=== PATIENT | male | born 1940 | race Native Hawaiian/Other Pacific Islander ===

== ENCOUNTER 2016-12-12 18:52 | Inpatient (IN) | payer MEDICARE, BC ==
[~2016-12-12] VITALS: Ht 167.6 cm; Wt 73.9 kg
[2016-12-12] MEDS ORDERED: RASA1TAB PO (19:21)
[2016-12-12] MEDS ORDERED: LOSA1TAB39 PO (19:21)
[2016-12-12] MEDS ORDERED: AMLO2.5T PO (19:21)
[2016-12-12] MEDS ORDERED: CLON1TAB4 PO (19:21)
[2016-12-12] MEDS ORDERED: MELA3TAB PO (19:21)
[2016-12-12] MEDS ORDERED: TAMS0.4C34 PO (19:21)
[2016-12-12] MEDS ORDERED: ROSU5TAB PO (19:21)
[2016-12-12] MEDS ORDERED: LEVO25TA9 PO (19:21)
[2016-12-12] MEDS ORDERED: CARB-96 PO (19:21)
[2016-12-12] MEDS ORDERED: VENL75CA62 PO (19:21)
[2016-12-12] MEDS ORDERED: DIVA125C5 PO (19:21)
[2016-12-12] MEDS ORDERED: CARB-93 PO (19:21)
[2016-12-12] MEDS ORDERED: POTA10TA15 PO (19:21)
[2016-12-12] MEDS ORDERED: BISA-79 PO (19:21)
--- NOTE | 2016-12-12 19:24 | NUR ---
Patient BIB private ambulance for Medical Clearance and GPS admission. Patient arrives A/O x2, Mongolian speaking (some turkmen), calm and cooperative. To room 5A, RODDY performed MSE.
--- NOTE | 2016-12-12 19:24 | NUR ---
Patient arrives on 5150 hold for GD. Per hold, patient broke a window in a locked unit in an attempt to escape. Per hold, patient is aware and apologetic about the incident.
[2016-12-12 19:34] LABS: BASOPHILS # (AUTO) 0.1 K/uL (0.0-8.0); BASOPHILS % (AUTO) 1.7 % (0.0-2.0); EOSINOPHILS # (AUTO) 0.1 K/uL (0.0-0.7); EOSINOPHILS % (AUTO) 1.2 % (0.0-7.0); HEMATOCRIT 44.9 % (40-50); HEMOGLOBIN 15.5 G/DL (14.0-18.0); LYMPHOCYTES # (AUTO) 1.4 K/UL (0.8-4.8); LYMPHOCYTES % (AUTO) 16.7 % (20.5-51.5); MEAN CORPUSCULAR HEMOGLOBIN 31.5 UUG (27.0-31.0); MEAN CORPUSCULAR HGB CONC 35 g/dL (32.0-37.0); MEAN CORPUSCULAR VOLUME 91.3 FL (82.0-92.0); MONOCYTES # (AUTO) 0.5 K/UL (0.1-1.30); MONOCYTES % (AUTO) 5.8 % (0.0-11.0); NEUTROPHILS # (AUTO) 6.3 K/UL (1.8-8.9); NEUTROPHILS % (AUTO) 74.6 % (38.5-71.5); PLATELET COUNT (AUTO) 250 K/UL (150-450); RED BLOOD CELL COUNT(AUTO) 4.92 MIL/UL (4.7-6.1); WHITE BLOOD COUNT (AUTO) 8.4 K/UL (4.0-11.2)
[2016-12-12 19:44] LABS: CARBON DIOXIDE 28 mmol/L (21-32); CHLORIDE 104 mmol/L (98-107); CREATININE 1.1 mg/dL (0.6-1.3); GLUCOSE 143 mg/dL (74-106); POTASSIUM 2.9 mmol/L (3.5-5.1); UREA NITROGEN, BLOOD 14 mg/dL (7-18)
[2016-12-12 19:49] LABS: ALANINE AMINOTRANSFERASE 10 U/L (16-63); ALKALINE PHOSPHATASE 46 U/L (50-136); ASPARTATE AMINOTRANSFERASE 12 U/L (15-37); BILIRUBIN,DIRECT 0.1 mg/dL (0.0-0.2); BILIRUBIN,TOTAL 0.6 mg/dL (0.2-1.0); TOTAL PROTEIN, SERUM 6.4 g/dL (6.4-8.2)
[2016-12-12 20:11] LABS: ETHANOL < 3 MG/DL (0-0)
[2016-12-12] MEDS ORDERED: POT CHLORIDE/POT BICARB/CIT AC 25 MEQ TABLET.EFF PO ONE (20:30)
[2016-12-12 20:49] LABS: *BILIRUBIN,URIN NEGATIVE (NEGATIVE); *BLOOD, URINE 1+ (NEGATIVE); *CLARITY,URINE CLEAR (CLEAR); *COLOR,URINE YELLOW (YELLOW); *KETONES,URINE TRACE (NEGATIVE); *PROTEIN,URINE NEGATIVE (NEGATIVE); *UROBILINOGEN,URINE 0.2 E.U./dl (NORMAL); LEUKOCYTE ESTERASE ,URINE NEGATIVE (NEGATIVE); NITRITE, URINE NEGATIVE (NEGATIVE); PH,URINE 6.5 (5.0-8.0); UGLUCOSE NEGATIVE (NEGATIVE)
[2016-12-12 20:55] LABS: BACTERIA,URINE NONE SEEN /HPF (NONE SEEN); SQUAMOUS EPITHELIAL CELL,UR FEW /HPF (NONE SEEN); WBC,URINE 0-3 /HPF (0-3)
[2016-12-12] MEDS ORDERED: POTASSIUM BICARBONATE/CIT AC 25 MEQ TABLET.EFF ONE (20:57)
[2016-12-12 21:03] LABS: *AMPHETAMINE, URINE NEGATIVE (NEGATIVE); *BARBITURATE, URINE NEGATIVE (NEGATIVE); *CANNABINOID, URINE NEGATIVE (NEGATIVE); *COCCAINE, URINE NEGATIVE (NEGATIVE); *OPIATE, URINE NEGATIVE (NEGATIVE); *PHENCYCLIDINE SCREEN,URINE NEGATIVE (NEGATIVE)
--- NOTE | 2016-12-12 21:33 | NUR ---
Pt. admitted to GPS, under care of Dr. Patel Belongs List completed
[2016-12-12] MEDS ORDERED: ACETAMINOPHEN 325 MG TABLET PO PRN (22:00)
[2016-12-12] MEDS ORDERED: MAGNESIUM HYDROXIDE 30 ML LIQUID UDC PO PRN (22:00)
[2016-12-12] MEDS ORDERED: ZOLPIDEM 5 MG TABLET PO PRN (22:00)
[2016-12-12] MEDS ORDERED: MAG HYDROX/AL HYDROX/SIMETH 30 ML LIQUID UDC PO PRN (22:00)
[2016-12-12] MEDS ORDERED: ZOLPIDEM 5 MG TABLET ONE (22:45)
[2016-12-12] MEDS ORDERED: ACETAMINOPHEN 325 MG TABLET ONE (23:05)
[2016-12-13] MEDS ORDERED: LORAZEPAM 0.5 MG TABLET ONE (03:39)
--- NOTE | 2016-12-13 06:57 | NUR ---
PATIENT IS A 76 YR OLD [place] MALE ADMITTED TO [facility] ON A 5150 FOR GRAVE DISABILITY FOR BREAKING A WINDOW IN THE LOCKED BOARD AND CARE. PATIENT HAS ALSO BECOME AGGRESSIVE AND UNMANAGEABLE. PATIENT IS CONFUSED AND UNABLE TO FORMULATE PLAN FOR SELF. PATIENT HAS A HISTORY OF HYPERTENSION, PARKINSON'S, DEMENTIA, CONSTIPATION, BPH, ALZHEIMER'S, HYPOTHYROID. PATIENT ADMITTED UNDER THE CARE OF DR. RAE AND DR. HART. PATIENT PRESENTED ON THE UNIT CONFUSED UNABLE TO ANSWER ADMITTING INTERVIEW QUESTIONS PATIENT ANXIOUS, AND REQUIRED REDIRECTION. PRN FOR INSOMNIA ADMINISTERED WITH EFFECTIVE OUTCOME, PATIENT SLEPT A TOTAL OF FOUR HOURS AND FORTY-FIVE MINUTES. CONTINUE OBSERVATION FOR SAFETY.
[2016-12-13 08:00] VITALS: BP 137/80
--- NOTE | 2016-12-13 10:46 | NUR ---
Initial discharge instructions: Pt resides at [facility] [[address] [place], [place],[address];[phone]].Per pt's son,he would like the pt to return back to the facility.SW attempted to contact admissions office at the facility,but no answer at this time.In the case that the pt is not accepted back,son reported he will take the pt back home with his .THALIA will speak with pt,family,and MD regarding appropriate discharge plans.SW will form a safe and proper discharge.
[2016-12-13] MEDS: CARBIDOPA/LEVODOPA 25-100MG TABLET PO SCH ×2 (12:45→17:26)
[2016-12-13] MEDS: POTASSIUM CHLORIDE 10 MEQ CAPSULE.SA PO SCH (12:47)
[2016-12-13] MEDS: LEVOTHYROXINE SODIUM 25 MCG TABLET PO SCH (12:47)
[2016-12-13] MEDS: DIVALPROEX 250 MG TABLET.DR PO SCH ×2 (13:31→17:26)
[2016-12-13 15:00] VITALS: BP 156/92
[2016-12-13] MEDS: AZILECT 1 MG PO SCH (15:00)
[2016-12-13] MEDS: QUETIAPINE FUMARATE 25 MG TABLET PO SCH ×2 (17:26→21:05)
[2016-12-13] MEDS: CARBIDOPA/LEVODOPA CR 50-200MG TABLET.SA PO SCH (17:27)
[2016-12-13 21:22] VITALS: BP 107/65
[2016-12-14] MEDS: LEVOTHYROXINE SODIUM 25 MCG TABLET PO SCH (06:32)
[2016-12-14 07:30] VITALS: BP 162/94
[2016-12-14] MEDS: CARBIDOPA/LEVODOPA CR 50-200MG TABLET.SA PO SCH ×2 (08:23→17:00)
[2016-12-14] MEDS: DIVALPROEX 250 MG TABLET.DR PO SCH ×3 (08:23→17:00)
[2016-12-14] MEDS: POTASSIUM CHLORIDE 10 MEQ CAPSULE.SA PO SCH (08:23)
[2016-12-14] MEDS: CARBIDOPA/LEVODOPA 25-100MG TABLET PO SCH ×3 (08:23→17:00)
[2016-12-14] MEDS: QUETIAPINE FUMARATE 25 MG TABLET PO SCH ×3 (08:25→20:42)
[2016-12-14] MEDS: TAMSULOSIN HCL 0.4 MG CAP.SR.24H PO SCH (08:25)
[2016-12-14] MEDS: AZILECT 1 MG PO SCH (08:26)
[2016-12-14] MEDS ORDERED: Medication Not On Formulary EA (Potassium Chloride 1 TAB) PO SCH (09:00)
[2016-12-14] MEDS ORDERED: AMLODIPINE 2.5 MG TABLET PO SCH (09:00)
[2016-12-14] MEDS ORDERED: CLONIDINE HCL 0.1 MG TABLET PO PRN (10:00)
[2016-12-14] MEDS: LORAZEPAM 0.5 MG TABLET PO PRN (14:54)
[2016-12-14 16:00] VITALS: BP 115/69
[2016-12-14 20:32] VITALS: BP 133/61
[2016-12-14] MEDS ORDERED: LORAZEPAM 2 MG/1 ML VIAL IM ONE (22:00)
[2016-12-14] MEDS ORDERED: OLANZAPINE 10 MG VIAL IM ONE ×2 (22:00→22:09)
[2016-12-14] MEDS ORDERED: LORAZEPAM 2 MG/1 ML VIAL ONE (22:12)
--- NOTE | 2016-12-14 22:13 | NUR ---
AT APPROX 2130 PATIENT STARTED PACING THE MAIN HALLWAY. HE THEN, ATTEMPTED TO OPEN THE MAIN DOOR. VERBAL REDIRECTION WAS GIVEN, YET INEFFECTIVE. HE THEN STARTED YELLING AND SCREAMING AND CONTINUE TO TRY TO OPEN THE MAIN DOUBLE DOORS, VERBAL REDIRECTION WAS GIVEN AND PATIENT WAS ASKED TO SIT IN HIS CHETNA CHAIR. HOWEVER, HE CONTINUE BANGING THE TABLE OF HIS CHETNA CHAIR, YELLING AND SCREAMING. DR. RAE WAS NOTIFIED AT APPROX 2150 AND NEW ORDERS OBTAINED TO ADMINISTER ZYPREXA 5MG IM AND ATIVAN 1MG IM STAT ORDER ONE TIME ONLY FOR SEVERE AGITATION. AT APPROX 22OO, ZYPREXA 5MG IM WAS GIVEN IN THE LEFT DELTOID AND ATIVAN 1MG WAS GIVEN IN THE RIGHT DELTOID WITH PATIENT'S CONSENT. WE WILL CONTINUE TO MONITOR. Addendum: 12/14/16 at 2312 by JIM CLOUD RN ATIVAN 0.5MG PO PRN FOR ANXIETY WAS OFFERED AT APPROX 2140. HOWEVER PATIENT REFUSED TO TAKE MEDICATION. MULTIPLE VERBAL REDIRECTION GIVEN, YET INEFFECTIVE.
[2016-12-15] MEDS: LORAZEPAM 0.5 MG TABLET PO PRN ×3 (04:32→16:05)
--- NOTE | 2016-12-15 04:52 | NUR ---
PATIENT NOTED IN HIS CHETNA CHAIR RESTLESS AND ANXIOUS. ATIVAN 0.5MG PO PRN WAS GIVEN FOR ANXIETY. WE WILL CONTINUE TO MONITOR.
[2016-12-15] MEDS: LEVOTHYROXINE SODIUM 25 MCG TABLET PO SCH (06:09)
[2016-12-15 07:01] LABS: BASOPHILS % (AUTO) 0.1 % (0.0-2.0); EOSINOPHILS % (AUTO) 0.6 % (0.0-7.0); HEMOGLOBIN 17.9 G/DL (14.0-18.0); LYMPHOCYTES # (AUTO) 1.4 K/UL (0.8-4.8); LYMPHOCYTES % (AUTO) 18.1 % (20.5-51.5); MEAN CORPUSCULAR HEMOGLOBIN 31.6 UUG (27.0-31.0); MEAN CORPUSCULAR HGB CONC 34 g/dL (32.0-37.0); MEAN CORPUSCULAR VOLUME 93.7 FL (82.0-92.0); MONOCYTES # (AUTO) 0.5 K/UL (0.1-1.30); MONOCYTES % (AUTO) 6.9 % (0.0-11.0); NEUTROPHILS # (AUTO) 5.7 K/UL (1.8-8.9); NEUTROPHILS % (AUTO) 74.3 % (38.5-71.5); PLATELET COUNT (AUTO) 262 K/UL (150-450); RED BLOOD CELL COUNT(AUTO) 5.66 MIL/UL (4.7-6.1); WHITE BLOOD COUNT (AUTO) 7.6 K/UL (4.0-11.2)
[2016-12-15 07:17] LABS: ALANINE AMINOTRANSFERASE 21 U/L (16-63); ALKALINE PHOSPHATASE 48 U/L (50-136); ASPARTATE AMINOTRANSFERASE 17 U/L (15-37); BILIRUBIN,TOTAL 1.6 mg/dL (0.2-1.0); CARBON DIOXIDE 32 mmol/L (21-32); CHLORIDE 106 mmol/L (98-107); CREATININE 1.1 mg/dL (0.6-1.3); GLUCOSE 101 mg/dL (74-106); MAGNESIUM 2.3 mg/dL (1.8-2.4); PHOSPHOROUS 2.2 mg/dL (2.5-4.9); POTASSIUM 3.2 mmol/L (3.5-5.1); TOTAL PROTEIN, SERUM 7.8 g/dL (6.4-8.2); UREA NITROGEN, BLOOD 17 mg/dL (7-18)
[2016-12-15 07:30] VITALS: BP 154/96
[2016-12-15] MEDS: TAMSULOSIN HCL 0.4 MG CAP.SR.24H PO SCH (08:24)
[2016-12-15] MEDS: CARBIDOPA/LEVODOPA CR 50-200MG TABLET.SA PO SCH ×2 (08:24→17:00)
[2016-12-15] MEDS: CARBIDOPA/LEVODOPA 25-100MG TABLET PO SCH ×3 (08:25→17:00)
[2016-12-15] MEDS: POTASSIUM CHLORIDE 10 MEQ CAPSULE.SA PO SCH (08:25)
[2016-12-15] MEDS: AMLODIPINE 5 MG TABLET PO SCH (08:25)
[2016-12-15] MEDS: DIVALPROEX 250 MG TABLET.DR PO SCH ×3 (08:25→17:00)
[2016-12-15] MEDS: QUETIAPINE FUMARATE 25 MG TABLET PO SCH ×4 (08:25→20:24)
[2016-12-15] MEDS: AZILECT 1 MG PO SCH (09:04)
[2016-12-15] MEDS ORDERED: NEUTRA PHOS PACKET PO ONE (10:15)
[2016-12-15] MEDS ORDERED: POTASSIUM CHLORIDE 20 MEQ TAB.PRT.SR PO ONE (14:00)
[2016-12-15] MEDS ORDERED: POTASSIUM CHLORIDE 10 MEQ CAPSULE.SA PO ONE (14:00)
[2016-12-15] MEDS: DOCUSATE SODIUM 100 MG CAPSULE PO SCH ×2 (14:58→20:23)
[2016-12-15 20:32] VITALS: BP 120/83
[2016-12-16] MEDS: LEVOTHYROXINE SODIUM 25 MCG TABLET PO SCH (07:00)
--- NOTE | 2016-12-16 07:20 | NUR ---
Patient slept approx. 9.00 hours through the night. No anxiety or agitation noted during the night. Patient compliant with medication regiment.
[2016-12-16 08:01] LABS: BASOPHILS % (AUTO) 0.2 % (0.0-2.0); EOSINOPHILS # (AUTO) 0.1 K/uL (0.0-0.7); EOSINOPHILS % (AUTO) 1.2 % (0.0-7.0); HEMATOCRIT 51.9 % (40-50); LYMPHOCYTES # (AUTO) 2.2 K/UL (0.8-4.8); LYMPHOCYTES % (AUTO) 21.4 % (20.5-51.5); MEAN CORPUSCULAR HEMOGLOBIN 32.2 UUG (27.0-31.0); MEAN CORPUSCULAR HGB CONC 35 g/dL (32.0-37.0); MEAN CORPUSCULAR VOLUME 92.9 FL (82.0-92.0); MONOCYTES # (AUTO) 0.7 K/UL (0.1-1.30); NEUTROPHILS # (AUTO) 7.2 K/UL (1.8-8.9); NEUTROPHILS % (AUTO) 70.2 % (38.5-71.5); PLATELET COUNT (AUTO) 255 K/UL (150-450); RED BLOOD CELL COUNT(AUTO) 5.59 MIL/UL (4.7-6.1); WHITE BLOOD COUNT (AUTO) 10.2 K/UL (4.0-11.2)
[2016-12-16 08:02] LABS: ALANINE AMINOTRANSFERASE 17 U/L (16-63); ALKALINE PHOSPHATASE 50 U/L (50-136); ASPARTATE AMINOTRANSFERASE 15 U/L (15-37); BILIRUBIN,TOTAL 1.4 mg/dL (0.2-1.0); CARBON DIOXIDE 25 mmol/L (21-32); CHLORIDE 109 mmol/L (98-107); CREATININE 1.2 mg/dL (0.6-1.3); GLUCOSE 102 mg/dL (74-106); MAGNESIUM 2.4 mg/dL (1.8-2.4); POTASSIUM 3.8 mmol/L (3.5-5.1); TOTAL PROTEIN, SERUM 7.5 g/dL (6.4-8.2); UREA NITROGEN, BLOOD 19 mg/dL (7-18)
[2016-12-16] MEDS: TAMSULOSIN HCL 0.4 MG CAP.SR.24H PO SCH (08:57)
[2016-12-16] MEDS: CARBIDOPA/LEVODOPA CR 50-200MG TABLET.SA PO SCH ×2 (08:57→17:34)
[2016-12-16] MEDS: AMLODIPINE 5 MG TABLET PO SCH (08:57)
[2016-12-16] MEDS: DOCUSATE SODIUM 100 MG CAPSULE PO SCH ×2 (08:57→20:00)
[2016-12-16] MEDS: CARBIDOPA/LEVODOPA 25-100MG TABLET PO SCH ×3 (08:57→17:34)
[2016-12-16] MEDS: DIVALPROEX 250 MG TABLET.DR PO SCH ×3 (08:57→17:34)
[2016-12-16] MEDS: QUETIAPINE FUMARATE 25 MG TABLET PO SCH ×3 (08:57→20:01)
[2016-12-16] MEDS: POTASSIUM CHLORIDE 10 MEQ CAPSULE.SA PO SCH (08:57)
[2016-12-16] MEDS: AZILECT 1 MG PO SCH (10:00)
--- NOTE | 2016-12-16 13:30 | NUR ---
GPS.RN- UNABLE TO ADMINISTER PRN PO ATIVAN 0.5MG, PATIENT REFUSING COMBATIVE. WITNESS TO WASTE ANTOINE [place]O RN
[2016-12-16] MEDS: LORAZEPAM 0.5 MG TABLET PO PRN ×2 (13:37→21:07)
--- NOTE | 2016-12-16 13:37 | NUR ---
GPS/RN- patient anxious restless, shouting, disrobing, patient verbalizing he does not want to . patient redirected frequently for emotional support. anxious, combative. unable to redirect. Dr Graham notified.
[2016-12-16] MEDS ORDERED: OLANZAPINE 10 MG VIAL IM ONE ×3 (13:45→23:30)
--- NOTE | 2016-12-16 13:54 | NUR ---
GPS/RN- chemical restraint Zyprexa 7.5mg administered per MD orders, unable to obtain vitals prior patient combative and swinging, no respiratory distress noted continue to monitor
[2016-12-16 16:00] VITALS: BP 96/56
[2016-12-16 20:07] VITALS: BP 126/77
--- NOTE | 2016-12-16 23:27 | NUR ---
AT APPROX 2315 PATIENT, WHILE SITTING IN HIS CHETNA CHAIR, HE STARTED BANGING HIS TABLE, THEN GRABBED A WALKER AND REFUSED TO GIVE IT BACK. VERBAL REDIRECTION WAS GIVEN, YET INEFFECTIVE. AT APPROX 2320 DR. BOYD WAS NOTIFIED AND NEW ORDERS OBTAINED TO ADMINISTER ZYPREXA 10MG IM STAT ORDER ONE TIME ONLY FOR SEVERE AGITATION. AT APPROX 2324, ZYPREXA 10MG IM WAS GIVEN IN THE RIGHT DELTOID WITH PATIENT'S CONSENT. WE WILL CONTINUE TO MONITOR
[2016-12-17] MEDS: LEVOTHYROXINE SODIUM 25 MCG TABLET PO SCH (07:00)
[2016-12-17 07:03] LABS: BASOPHILS % (AUTO) 0.3 % (0.0-2.0); EOSINOPHILS # (AUTO) 0.1 K/uL (0.0-0.7); EOSINOPHILS % (AUTO) 1.3 % (0.0-7.0); HEMATOCRIT 50.7 % (40-50); HEMOGLOBIN 17.4 G/DL (14.0-18.0); LYMPHOCYTES # (AUTO) 1.2 K/UL (0.8-4.8); LYMPHOCYTES % (AUTO) 13.8 % (20.5-51.5); MEAN CORPUSCULAR HEMOGLOBIN 31.9 UUG (27.0-31.0); MEAN CORPUSCULAR HGB CONC 34 g/dL (32.0-37.0); MEAN CORPUSCULAR VOLUME 92.9 FL (82.0-92.0); MONOCYTES # (AUTO) 0.5 K/UL (0.1-1.30); MONOCYTES % (AUTO) 5.8 % (0.0-11.0); NEUTROPHILS # (AUTO) 6.8 K/UL (1.8-8.9); NEUTROPHILS % (AUTO) 78.8 % (38.5-71.5); PLATELET COUNT (AUTO) 243 K/UL (150-450); RED BLOOD CELL COUNT(AUTO) 5.46 MIL/UL (4.7-6.1); WHITE BLOOD COUNT (AUTO) 8.6 K/UL (4.0-11.2)
[2016-12-17 07:30] VITALS: BP 154/87
[2016-12-17] MEDS: LORAZEPAM 1 MG TABLET PO PRN ×2 (07:45→15:04)
[2016-12-17] MEDS: DOCUSATE SODIUM 100 MG CAPSULE PO SCH ×2 (08:03→22:50)
[2016-12-17] MEDS: AMLODIPINE 5 MG TABLET PO SCH (08:03)
[2016-12-17] MEDS: TAMSULOSIN HCL 0.4 MG CAP.SR.24H PO SCH (08:03)
[2016-12-17] MEDS: CARBIDOPA/LEVODOPA CR 50-200MG TABLET.SA PO SCH ×2 (08:03→17:31)
[2016-12-17] MEDS: CARBIDOPA/LEVODOPA 25-100MG TABLET PO SCH ×3 (08:03→17:31)
[2016-12-17] MEDS: DIVALPROEX 250 MG TABLET.DR PO SCH ×3 (08:04→17:31)
[2016-12-17] MEDS: POTASSIUM CHLORIDE 10 MEQ CAPSULE.SA PO SCH (08:04)
[2016-12-17] MEDS: QUETIAPINE FUMARATE 25 MG TABLET PO SCH ×4 (09:09→22:49)
[2016-12-17] MEDS: AZILECT 1 MG PO SCH (09:11)
[2016-12-17 15:22] VITALS: BP 96/62
--- NOTE | 2016-12-17 17:38 | NUR ---
GPS.RN- patient daughter in law Vicky called to inform that patient has been Seroquel, Meripex and Nutren before which was not effective for patient. Informed Dr Graham, will inform Dr Patel for rounds tomorrow. no orders at this time continue to monitor
[2016-12-17 20:00] VITALS: BP 103/66
[2016-12-17] MEDS ORDERED: DIVALPROEX SPRINKLE 125 MG CAP.SPRINK PO SCH (20:00)
[2016-12-17] MEDS ORDERED: DIVALPROEX SPRINKLE 125 MG CAP.SPRINK PO ONE (21:00)
--- NOTE | 2016-12-17 23:00 | NUR ---
Patient was able to take all his 2100 medication at this time. He has been asleep. He is now walking in the hallway, he is calm and cooperative. he remains on 1:1 supervision for precaution. We will continue to monitor.
[2016-12-18] MEDS: LEVOTHYROXINE SODIUM 25 MCG TABLET PO SCH (07:00)
[2016-12-18 07:30] VITALS: BP 152/63
[2016-12-18] MEDS ORDERED: DIVALPROEX 250 MG TABLET.DR PO SCH (09:00)
[2016-12-18] MEDS: DIVALPROEX SPRINKLE 125 MG CAP.SPRINK PO SCH ×4 (09:02→21:29)
[2016-12-18] MEDS: DOCUSATE SODIUM 100 MG CAPSULE PO SCH ×2 (09:02→21:27)
[2016-12-18] MEDS: TAMSULOSIN HCL 0.4 MG CAP.SR.24H PO SCH (09:03)
[2016-12-18] MEDS: POTASSIUM CHLORIDE 10 MEQ CAPSULE.SA PO SCH (09:03)
[2016-12-18] MEDS: CARBIDOPA/LEVODOPA CR 50-200MG TABLET.SA PO SCH ×2 (09:03→17:42)
[2016-12-18] MEDS: QUETIAPINE FUMARATE 25 MG TABLET PO SCH ×2 (09:03→13:36)
[2016-12-18] MEDS: AMLODIPINE 5 MG TABLET PO SCH (09:03)
[2016-12-18] MEDS: CARBIDOPA/LEVODOPA 25-100MG TABLET PO SCH ×5 (09:03→21:26)
[2016-12-18] MEDS: AZILECT 1 MG PO SCH (09:03)
[2016-12-18 15:41] VITALS: BP 116/66
--- NOTE | 2016-12-18 19:18 | NUR ---
Refused to take medication, spit out the medications. Agitated and banging the table. 1:1 sitter
[2016-12-18 20:00] VITALS: BP 153/79
[2016-12-18] MEDS: ZOLPIDEM 5 MG TABLET PO PRN (22:31)
[2016-12-19] MEDS: CARBIDOPA/LEVODOPA 25-100MG TABLET PO SCH ×5 (06:00→21:41)
[2016-12-19] MEDS: LEVOTHYROXINE SODIUM 25 MCG TABLET PO SCH (06:47)
[2016-12-19] MEDS: DOCUSATE SODIUM 100 MG CAPSULE PO SCH ×2 (09:21→21:40)
[2016-12-19] MEDS: CARBIDOPA/LEVODOPA CR 50-200MG TABLET.SA PO SCH ×2 (09:22→17:07)
[2016-12-19] MEDS: POTASSIUM CHLORIDE 10 MEQ CAPSULE.SA PO SCH (09:22)
[2016-12-19] MEDS: DIVALPROEX SPRINKLE 125 MG CAP.SPRINK PO SCH ×3 (09:22→21:38)
[2016-12-19] MEDS: TAMSULOSIN HCL 0.4 MG CAP.SR.24H PO SCH (09:22)
[2016-12-19] MEDS: AZILECT 1 MG PO SCH (09:24)
[2016-12-19] MEDS: AMLODIPINE 5 MG TABLET PO SCH (09:33)
[2016-12-19 09:50] VITALS: BP 137/88
[2016-12-19] MEDS: OLANZAPINE ZYDIS 5 MG TAB.RAPDIS PO SCH ×2 (11:25→21:42)
[2016-12-19 15:23] VITALS: BP 132/66
--- NOTE | 2016-12-19 16:13 | NUR ---
GPS/RN- sitter Patient remains with sitter at this time for safety. Patient forgetful at times, AWOL Risk, ambulatory with weak gait, Parkinson disease, overestimates, history of combative behavior on unit and prior to admission, continue with sitter at this time for safety
--- NOTE | 2016-12-19 17:00 | NUR ---
FAMILY VISITING. PATIENT COOPERATIVE NO AGGRESSION NOTED. PATIENT INTERACTING WITH FAMILY
[2016-12-19 20:49] VITALS: BP 134/87
[2016-12-19] MEDS: SENNOSIDES 1 TABLET PO SCH (21:40)
--- NOTE | 2016-12-19 22:46 | NUR ---
Patient refused all his [facility] medication. encouraged x3 yet still refused. Christian, his son was contacted via phone call at approx 2130, Christian spoke with patient and after talking to son, patient agreed to take all his medication. He remains on a 1:1 supervision. He is calm at this time. less anxiety noted at this time. we will continue to monitor.
[2016-12-19] MEDS: ZOLPIDEM 5 MG TABLET PO PRN (23:12)
[2016-12-20] MEDS: CARBIDOPA/LEVODOPA 25-100MG TABLET PO SCH ×5 (06:27→20:01)
[2016-12-20] MEDS: LEVOTHYROXINE SODIUM 25 MCG TABLET PO SCH (06:28)
[2016-12-20 07:24] LABS: BASOPHILS # (AUTO) 0.1 K/uL (0.0-8.0); BASOPHILS % (AUTO) 0.9 % (0.0-2.0); EOSINOPHILS # (AUTO) 0.1 K/uL (0.0-0.7); EOSINOPHILS % (AUTO) 2.2 % (0.0-7.0); HEMATOCRIT 46.9 % (40-50); LYMPHOCYTES # (AUTO) 1.1 K/UL (0.8-4.8); LYMPHOCYTES % (AUTO) 18.9 % (20.5-51.5); MEAN CORPUSCULAR HEMOGLOBIN 31.5 UUG (27.0-31.0); MEAN CORPUSCULAR HGB CONC 34 g/dL (32.0-37.0); MEAN CORPUSCULAR VOLUME 92.5 FL (82.0-92.0); MONOCYTES # (AUTO) 0.4 K/UL (0.1-1.30); MONOCYTES % (AUTO) 6.5 % (0.0-11.0); NEUTROPHILS % (AUTO) 71.5 % (38.5-71.5); PLATELET COUNT (AUTO) 233 K/UL (150-450); RED BLOOD CELL COUNT(AUTO) 5.07 MIL/UL (4.7-6.1); WHITE BLOOD COUNT (AUTO) 5.7 K/UL (4.0-11.2)
--- NOTE | 2016-12-20 07:30 | NUR ---
Patient slept for approx 7hrs through the night. He is up and walking the hallway. He was compliant with his AM medication. He is calm and cooperative at this time.
[2016-12-20 08:00] LABS: ALANINE AMINOTRANSFERASE 9 U/L (16-63); ALKALINE PHOSPHATASE 44 U/L (50-136); ASPARTATE AMINOTRANSFERASE 16 U/L (15-37); BILIRUBIN,TOTAL 0.9 mg/dL (0.2-1.0); CARBON DIOXIDE 27 mmol/L (21-32); CHLORIDE 107 mmol/L (98-107); CREATININE 0.9 mg/dL (0.6-1.3); GLUCOSE 99 mg/dL (74-106); MAGNESIUM 2.2 mg/dL (1.8-2.4); PHOSPHOROUS 2.4 mg/dL (2.5-4.9); POTASSIUM 3.8 mmol/L (3.5-5.1); TOTAL PROTEIN, SERUM 6.9 g/dL (6.4-8.2); UREA NITROGEN, BLOOD 18 mg/dL (7-18)
--- NOTE | 2016-12-20 08:00 | NUR ---
PATIENT ON 1 STATUS FOR AWOL RISK AND SAFETY, HAD PERIODS OF AGITATION AND AWOL ATTEMPTS CALLED SON OFTEN TO GET PATIENT TO CALM DOWN , PT RECEIVED ATIVAN 1MG TWICE FOR AGITATION WITHLITTLE EFFECT , PT C/O CONSTIPATION AND RECEIVED MOM 30 CC TIMES ONE CONTINUE FOR SAFETY
[2016-12-20] MEDS: AMLODIPINE 5 MG TABLET PO SCH (08:32)
[2016-12-20] MEDS: DIVALPROEX SPRINKLE 125 MG CAP.SPRINK PO SCH ×3 (08:33→20:01)
[2016-12-20] MEDS: LORAZEPAM 1 MG TABLET PO PRN ×2 (08:33→18:01)
[2016-12-20] MEDS: CARBIDOPA/LEVODOPA CR 50-200MG TABLET.SA PO SCH ×2 (08:33→17:26)
[2016-12-20] MEDS: OLANZAPINE ZYDIS 5 MG TAB.RAPDIS PO SCH ×2 (08:35→20:01)
[2016-12-20] MEDS: DOCUSATE SODIUM 100 MG CAPSULE PO SCH ×2 (08:35→20:02)
[2016-12-20] MEDS: POTASSIUM CHLORIDE 10 MEQ CAPSULE.SA PO SCH (08:38)
[2016-12-20] MEDS: TAMSULOSIN HCL 0.4 MG CAP.SR.24H PO SCH (08:38)
[2016-12-20 16:00] VITALS: BP 122/74
[2016-12-20] MEDS ORDERED: NEUTRA PHOS PACKET PO ONE (16:15)
[2016-12-20] MEDS: AZILECT 1 MG PO SCH (17:27)
[2016-12-20] MEDS: SENNOSIDES 1 TABLET PO SCH (20:02)
--- NOTE | 2016-12-20 22:00 | NUR ---
received to care, sitting in his room, intermittently pacing via front wheel walker, 1;1 sitter at his side, at all times, for safety. compliant with medications and staff direction. as of 2199, he remains awake, and restless. pacing the hallway intermittently, testing the unit doors. needs frequent redirection. currently sitting in his room, talking to self. will continue to monitor closely.
[2016-12-20 22:07] VITALS: BP 117/79
--- NOTE | 2016-12-20 22:30 | NUR ---
remains awake. [facility] offered, but he declined.
[2016-12-20] MEDS: ZOLPIDEM 5 MG TABLET PO PRN (23:18)
--- NOTE | 2016-12-20 23:18 | NUR ---
[facility] given, with much encouragement.
--- NOTE | 2016-12-20 23:45 | NUR ---
appears to be asleep, in bed. no distress noted. sitter remains at side, for safety.
[2016-12-21] MEDS: CARBIDOPA/LEVODOPA 25-100MG TABLET PO SCH ×2 (05:57→10:21)
[2016-12-21] MEDS: LEVOTHYROXINE SODIUM 25 MCG TABLET PO SCH (05:57)
--- NOTE | 2016-12-21 06:10 | NUR ---
slept 5.25 hours, total. is now awake, sitting in his room, with his sitter. no distress noted.
[2016-12-21 07:40] LABS: CARBON DIOXIDE 30 mmol/L (21-32); CHLORIDE 107 mmol/L (98-107); CREATININE 0.9 mg/dL (0.6-1.3); GLUCOSE 83 mg/dL (74-106); MAGNESIUM 2.4 mg/dL (1.8-2.4); PHOSPHOROUS 2.6 mg/dL (2.5-4.9); POTASSIUM 3.6 mmol/L (3.5-5.1); UREA NITROGEN, BLOOD 15 mg/dL (7-18)
[2016-12-21] MEDS: OLANZAPINE ZYDIS 5 MG TAB.RAPDIS PO SCH (09:02)
[2016-12-21] MEDS: POTASSIUM CHLORIDE 10 MEQ CAPSULE.SA PO SCH (09:02)
[2016-12-21] MEDS: DOCUSATE SODIUM 100 MG CAPSULE PO SCH (09:02)
[2016-12-21] MEDS: DIVALPROEX SPRINKLE 125 MG CAP.SPRINK PO SCH (09:02)
[2016-12-21] MEDS: TAMSULOSIN HCL 0.4 MG CAP.SR.24H PO SCH (09:02)
[2016-12-21] MEDS: CARBIDOPA/LEVODOPA CR 50-200MG TABLET.SA PO SCH (09:03)
[2016-12-21 09:04] VITALS: BP 120/76
[2016-12-21] MEDS: AMLODIPINE 5 MG TABLET PO SCH (09:04)
[2016-12-21] MEDS: AZILECT 1 MG PO SCH (09:08)
--- NOTE | 2016-12-21 09:56 | NUR ---
DC Note: The patient will be discharged today to [facility] [[address] [place], [address]; [phone]] via ambulance at 1:00 pm. Please schedule an ambulance for the patient. Spoke with Fiorella at the facility who stated they would accept the patient today. Spoke with patient's Son/DPOA, Christian [phone] who is aware and agreeable with discharge plans. Pt will follow-up with Dr.Joel Chaudhari ([employer] [facility]) [[address], [place] [address]; [phone]] and was referred to , [phone], and [phone] for psychiatric referrals.
[2016-12-21] MEDS: LORAZEPAM 1 MG TABLET PO PRN (12:09)
--- NOTE | 2016-12-21 14:01 | NUR ---
1300: DISCHARGED PT VIA AMBULANCE TO [facility]. BELONGINGS AND DISCHARGE INSTRUCTIONS GIVEN TO PT. NO AGITATION. DENIES SI/HI. NO AGGRESSIVE BEHAVIOR NOTED. PT IN GOOD STABLE CONDITION.
== END 2016-12-21 13:30 | DRG 885 ==
LOC: ER 18:52 → GPS 21:21
PROVIDERS: ADMIT Psychiatry & Neurology Psychiatry; ATTEND Internal Medicine
DX: F29 Unspecified psychosis not due to a substance or known physiological condition (principal); F02.80 Dementia in other diseases classified elsewhere, unspecified severity, without behavioral disturbance, psychotic disturbance, mood disturbance, and anxiety; G93.40 Encephalopathy, unspecified; E87.0 Hyperosmolality and hypernatremia; R17 Unspecified jaundice; G30.9 Alzheimer's disease, unspecified; N40.1 Benign prostatic hyperplasia with lower urinary tract symptoms; N39.498 Other specified urinary incontinence; G20 Parkinson's disease; K59.00 Constipation, unspecified; E87.6 Hypokalemia; R60.0 Localized edema; E88.09 Other disorders of plasma-protein metabolism, not elsewhere classified; I11.9 Hypertensive heart disease without heart failure; E83.39 Other disorders of phosphorus metabolism; Z79.899 Other long term (current) drug therapy
CPT/HCPCS: 36415; 71010; 80164; 80307; 83735; 84100; 84443; 85025; 85730; 93005; 97116; 97161; 97530; A4663; G0480; J2060; J2358; J3490